=== PATIENT | male | born 1995 | race Caucasian/White ===

== ENCOUNTER 2024-12-17 00:27 | Emergency (ER) | payer OTHER ==
[~2024-12-17] VITALS: Ht 177.8 cm; Wt 81.8 kg
[2024-12-17] MEDS: IBUPROFEN 400 MG TABLET PO ONE (02:15)
[2024-12-17 05:43] VITALS: BP 123/71; PULSE 71; RESP 16; TEMP 97.3; O2SAT 96
== END 2024-12-17 06:35 ==
LOC: EMS 00:27
DX: S62.324A Displaced fracture of shaft of fourth metacarpal bone, right hand, initial encounter for closed fracture (principal); F15.90 Other stimulant use, unspecified, uncomplicated; Y04.0XXA Assault by unarmed brawl or fight, initial encounter; Y93.89 Activity, other specified; Y92.89 Other specified places as the place of occurrence of the external cause; Y99.8 Other external cause status
CPT/HCPCS: 99283